=== PATIENT | male | born 1970 | race Caucasian/White ===

== ENCOUNTER 2020-08-25 10:46 | Emergency (ER) | payer OTHER ==
[2020-08-25 11:21] VITALS: TEMP 97.6; BMI 25.1
[2020-08-25 13:57] VITALS: BP 119/56; PULSE 58
== END 2020-08-25 15:45 | disposition home or self-care (01) ==
LOC: FER 10:46
DX: Z04.1 Encounter for examination and observation following transport accident (principal)
CPT/HCPCS: 70450-TC; 71045-TC-FY; 72125-TC; 99285-25